=== PATIENT | female | born 1960 | race Two or more races ===

== ENCOUNTER 2017-01-22 08:13 | Day surgery (SDC) | payer OTHER ==
[2017-01-22] MEDS ORDERED: Lactated Ringer's 500 ML IV ONE (08:42)
[2017-01-22] MEDS ORDERED: Propofol 10 mg/ml Inj (20 ML) ONE (10:56)
[2017-01-22 11:47] VITALS: BP 113/62; PULSE 68; RESP 12; TEMP 96.9; O2SAT 100
== END 2017-01-22 11:54 | disposition home or self-care (01) ==
LOC: H.ENDO 08:13
PROVIDERS: ATTEND Internal Medicine Gastroenterology
DX: Z12.11 Encounter for screening for malignant neoplasm of colon (principal); K64.8 Other hemorrhoids